=== PATIENT | female | born 1930 | race Caucasian/White ===

== ENCOUNTER 2021-04-05 14:43 | Emergency (ER) | payer OTHER ==
--- OUTSIDE RECORDS SUMMARY | 2021-04-05 14:44 | XMS REPORT | Continuity of Care Document ---
:1930 Author Organization [facility] t Address [address] [place] [address] [address] [place] [address] Care Team Providers Name Role Phone David GALLEGOS Attending Clinician Problems This patient has no known problems. Allergies, Adverse Reactions, Alerts This patient has no known allergies or adverse reactions. Medications This patient has no known medications. Procedures This patient has no known procedures. Encounters Start End Encounter Admission Attending Care Care Encounter Source Date/Time Date/Time Type Type Clinicians Facility Department ID 2021-01-26 2021-01-26 Refill [facility] [id number] 00:00:00 00:00:00 Juwan Guevara [id number] [place] [id number] [facility] [phone] [address] 2021-01-18 2021-01-18 Refill [facility] [id number] 00:00:00 00:00:00 Juwan Guevara [id number] [place] [id number] [facility] [phone] nal [address] [place] [address] 2021-01-02 2021-01-02 Office [facility] [id number] 14:03:05 15:40:11 Visit Juwan Guevara [id number] [place] [id number] [facility] [phone] [address] Results This patient has no known results.
[2021-04-05] MEDS ORDERED: ACETAMINOPHEN 325 MG TABLET ONE (15:19)
--- NOTE | 2021-04-05 15:44 | RAD REPORT ---
EXAM DESCRIPTION: CT - Head C Spine Mpr Wo Con - 04/05/2021 3:19 pm CLINICAL HISTORY: Head and neck injury status post fall. Head and neck pain COMPARISON: None. TECHNIQUE: Computed axial tomography of the head and cervical spine was obtained. Sagittal and coronal reconstruction was performed. All CT scans are performed using dose optimization technique as appropriate and may include automated exposure control or mA/KV adjustment according to patient size. FINDINGS: An intracranial bleed is not seen. The ventricles are normal in caliber. An extra-axial fl uid collection is not noted.Fluid within the visualized sinuses and mastoids is not seen A cervical fracture is not visualized. No dislocation is noted. Spondylosis involves the cervical spi ne. IMPRESSION: No acute intracranial abnormality is seen. A cervical fracture is not visualized. If the patient continues to have symptoms to suggest intracra nial /spinal cord pathology then MRI would be recommended
--- NOTE | 2021-04-05 15:47 | RAD REPORT ---
EXAM DESCRIPTION: CT - Facial Bones W/ Mpr - 04/05/2021 3:18 pm CLINICAL HISTORY: Facial injury status post fall with facial pain COMPARISON: None TECHNIQUE: Computed axial tomography of the face was obtained. Coronal and sagittal reconstruction w as performed. All CT scans are performed using dose optimization technique as appropriate and may include automated exposure control or mA/KV adjustment according to patient size. FINDINGS: A fracture is not seen. A TMJ dislocation is not noted. The globes are intact. Fluid within the sinuses is not seen. IMPRESSION: Negative for a facial fracture.
--- NOTE | 2021-04-05 16:01 | EDPHYS ---
Physician Documentation [facility] Name: Celina Nation Age: 89 yrs Sex: Female : 1930 Arrival Date: 04/05/2021 Time: 14:55 Bed 2 Private MD: NAHUM Physician Gilson Freed HPI: 04/05 15:00 This 89 yrs old Female presents to ER via EMS with complaints of Head Injury Without cp LOC-Adult. 15:00 The patient or guardian reports injury. cp 15:00 The complaints affect the forehead and nose. Context of injury: The problem was cp sustained at long term, resulted from trip and fall. Onset: The symptoms/episode began/occurred just prior to arrival. Associated signs and symptoms: Loss of consciousness: This patient did not experience any loss of consciousness. Historical: - Allergies: 15:13 TETRACYCLINES; sv - PMHx: 15:13 Thyroid cancer; Hypertension; Dementia; Anxiety; Hypothyroidism; insomnia; Depression; sv - PSHx: 15:13 Thyroidectomy; Knee surgery; sv - Immunization history:: Adult Immunizations up to date. - Social history:: Smoking status: Patient denies any tobacco usage or history of. ROS: 15:15 Constitutional: Negative for body aches, chills, fever, poor PO intake. cp 15:15 Eyes: Negative for injury, pain, redness, and discharge. cp 15:15 ENT: Negative for drainage from ear(s), ear pain, sore throat, difficulty swallowing, difficulty handling secretions. 15:15 Neck: Negative for pain with movement, pain at rest, stiffness. 15:15 Cardiovascular: Negative for chest pain, palpitations. 15:15 Respiratory: Negative for cough, shortness of breath, wheezing. 15:15 Abdomen/GI: Negative for abdominal pain, nausea, vomiting, and diarrhea. 15:15 Back: Negative for pain at rest, pain with movement. 15:15 MS/extremity: Negative for injury or acute deformity, decreased range of motion, paresthesias. 15:15 Neuro: Negative for altered mental status, dizziness, loss of consciousness, syncope, weakness. 15:15 All other systems are negative. Exam: 15:20 Constitutional: The patient appears in no acute distress, alert, awake, cp non-diaphoretic, well developed, well nourished. 15:20 Head/face: Noted is contusion, that is superficial, of the forehead and nose. cp 15:20 Eyes: Periorbital structures: appear normal, Pupils: equal, round, and reactive to light and accomodation, Extraocular movements: intact throughout, Conjunctiva: normal, no exudate, no injection, Sclera: no appreciated abnormality, Lids and lashes: appear normal, bilaterally. 15:20 ENT: External ear(s): are unremarkable, Ear canal(s): are normal, clear, TM's: dullness, bilaterally, Nose: External nose: contusion is noted, bridge of nose, Nasal septum: is midline, no septal hematoma appreciated, Mouth: Lips: upper lip, mild swelling, Posterior pharynx: Airway: no evidence of obstruction, patent, Dental exam: no acute changes, Voice: is normal. 15:20 Neck: C-spine: vertebral tenderness, is not appreciated, crepitus, is not appreciated, ROM/movement: is normal, is supple, without pain, no range of motions limitations. 15:20 Chest/axilla: Inspection: normal, Palpation: is normal, no crepitus, no tenderness. 15:20 Cardiovascular: Rate: normal. 15:20 Respiratory: the patient does not display signs of respiratory distress, Respirations: normal, no use of accessory muscles. 15:20 Abdomen/GI: Exam negative for discomfort, distension, guarding, Inspection: abdomen appears normal. 15:20 Back: pain, is absent, ROM is normal. 15:20 Musculoskeletal/extremity: Exam is negative for decreased range of motion, deformity, injury. 15:20 Neuro: Orientation: to person, place \T\ time. Mentation: is normal, Motor: moves all fours, strength is normal, Sensation: no obvious gross deficits. Vital Signs: 15:10 BP 141 / 80; Pulse 74; Resp 20; Temp 97.9(O); Pulse Ox 98% ; sv 15:44 BP 109 / 53; Pulse 67; Resp 18; Temp 98; Pulse Ox 100% ; sv Cassie Coma Score: 15:00 Eye Response: spontaneous(4). Verbal Response: oriented(5). Motor Response: obeys cp commands(6). Total: 15. 15:44 Eye Response: spontaneous(4). Verbal Response: oriented(5). Motor Response: obeys sv commands(6). Total: 15. Trauma Score (Adult): 14:55 Eye Response: spontaneous(1); Verbal Response: oriented(1); Motor Response: obeys sv commands(2); Systolic BP: > 89 mm Hg(4); Respiratory Rate: 10 to 29 per min(4); Bradley Score: 15; Trauma Score: 12 15:44 Eye Response: spontaneous(1); Verbal Response: oriented(1); Motor Response: obeys sv commands(2); Systolic BP: > 89 mm Hg(4); Respiratory Rate: 10 to 29 per min(4); Cassie Score: 15; Trauma Score: 12 MDM: 14:58 Patient medically screened. [facility] 16:00 Data reviewed: vital signs, nurses notes, radiologic studies, CT scan. 16:00 Differential diagnosis: Contusion of Hematoma on Intracranial bleed- Concussion cp cerebral contusion. Counseling: I had a detailed discussion with the patient and/or guardian regarding: the historical points, exam findings, and any diagnostic results supporting the discharge/admit diagnosis, radiology results, to return to the emergency department if symptoms worsen or persist or if there are any questions or concerns that arise at home. Response to treatment: the patient's symptoms have markedly improved after treatment, and as a result, I will discharge patient. 04/05 14:56 Order name: CT Facial Bones W/O Con; Complete Time: 15:57 04/05 15:57 Interpretation: Report reviewed. 04/05 14:56 Order name: CT Head C Spine; Complete Time: 15:46 04/05 15:46 Interpretation: Reviewed report. Administered Medications: 15:09 CANCELLED (pt took Tylenol #3 before coming): Tylenol 650 mg PO once sv Disposition: 16:20 Chart complete. 04/06 10:01 Co-signature as Attending Physician, Gilson Freed MD I agree with the assessment and [facility] plan of care. Disposition: 04/05/21 16:01 Discharged to Home. Impression: Fall on same level from slipping, tripping and stumbling, Contusion of lip and oral cavity. - Condition is Stable. - Discharge Instructions: Facial or Scalp Contusion. - Medication Reconciliation Form, Thank You Letter, Antibiotic Education, Prescription Opioid Use form. - Follow up: Emergency Department; When: As needed; Reason: Worsening of condition. - Problem is new. - Symptoms have improved. Signatures: Dispatcher [employer] Gema Ricardo RN RN sv Anderson, Corey, MD MD cha Page, Corey, PA PA cp Corrections: (The following items were deleted from the chart) 04/05 15:09 14:56 Tylenol 650 mg PO once ordered. cp sv 16:15 16:01 04/05/2021 16:01 Discharged to Home. Impression: Fall on same level from sv slipping, tripping and stumbling; Contusion of lip and oral cavity. Condition is Stable. Forms are Medication Reconciliation Form, Thank You Letter, Antibiotic Education, Prescription Opioid Use. Follow up: Emergency Department; When: As needed; Reason: Worsening of condition. Problem is new. Symptoms have improved. cp
--- NOTE | 2021-04-05 16:01 | ER ---
Nurse's Notes [facility] Name: Celina Nation Age: 89 yrs Sex: Female : 1930 Arrival Date: 04/05/2021 Time: 14:55 Bed 2 Private MD: Diagnosis: Fall on same level from slipping, tripping and stumbling;Contusion of lip and oral cavity Presentation: 04/05 14:55 Chief complaint: EMS states: s/p frontal fall today at [facility], hit the left forehead sv area, nose, and upper lip. Pt has small laceration inside the upper lip. Denies LOC or on blood thinners. Care prior to arrival: None. Mechanism of Injury: Fall from standing position. Trauma event details: Injury occurred in the [facility], Injury occurred: at home. Injury occurred: April 05, 2021. 14:55 Acuity: IVANNA 4 sv 14:55 Method Of Arrival: EMS: [facility] sv 15:10 Coronavirus screen: Client denies travel out of the [place] in the last 14 days. Ebola sv Screen: No symptoms or risks identified at this time. Initial Sepsis Screen: Does the patient meet any 2 criteria? No. Patient's initial sepsis screen is negative. Does the patient have a suspected source of infection? No. Patient's initial sepsis screen is negative. Risk Assessment: Do you want to hurt yourself or someone else? Patient reports no desire to harm self or others. Onset of symptoms was April 05, 2021. Trauma Activation: Not Applicable Physician: ED Physician; Name: ; Notified At: ; Arrived At: Physician: General Surgeon; Name: ; Notified At: ; Arrived At: Physician: Radiology; Name: ; Notified At: ; Arrived At: Physician: Respiratory; Name: ; Notified At: ; Arrived At: Physician: Lab; Name: ; Notified At: ; Arrived At: Historical: - Allergies: 15:13 TETRACYCLINES; sv - PMHx: 15:13 Thyroid cancer; Hypertension; Dementia; Anxiety; Hypothyroidism; insomnia; Depression; sv - PSHx: 15:13 Thyroidectomy; Knee surgery; sv - Immunization history:: Adult Immunizations up to date. - Social history:: Smoking status: Patient denies any tobacco usage or history of. Screenin:47 Abuse screen: Denies threats or abuse. Denies injuries from another. Nutritional sv screening: No deficits noted. Tuberculosis screening: No symptoms or risk factors identified. Fall Risk None identified. Primary Survey: 14:55 NO uncontrolled hemorrhage observed. A: The patient is alert. Airway: patent, No sv supplemental oxygen in use on arrival. Oral cavity: clear, Trachea midline. Breathing/Chest: Respiratory pattern: regular, Respiratory effort: spontaneous, unlabored, Chest inspection: symmetrical rise and fall of the chest. Circulation: Heart tones present. Pulses: palpable right radial artery and left radial artery. Skin color: pink, Skin temperature: warm, dry. Disability Alert. Exposure/Environment: All clothing and personal items were removed. Forensic evidence collection is not deemed to be indicated at this time. Items placed in patient belonging bag. There is no evidence of uncontrolled external bleeding. 15:44 Reassessment Airway Airway Patent Oxygen No O2 Oral cavity Clear Trachea Midline sv Breathing/Chest Respiratory pattern Regular Respiratory effort Spontaneous Unlabored Chest inspection Symmetrical Circulation Heart tones Present Pulses Palpable Color Dwight Temperature Warm Dry Disability Alert. Secondary Survey: 14:55 HEENT: Head Other dime sized hematoma noted above left eyebrow Nose: abrasion noted. sv Gastrointestinal: No deficits noted. : No signs and/or symptoms were reported regarding the genitourinary system. Musculoskeletal: No signs and/or symptoms reported regarding the musculoskeletal system. Injury Description: Laceration sustained to upper lip is 0.5 to 2.5 cm long. Assessment: 16:01 Reassessment: Patient appears in no apparent distress at this time. No changes from previously documented assessment. Patient and/or family updated on plan of care and expected duration. Pain level reassessed. Patient is alert, oriented x 3, equal unlabored respirations, skin warm/dry/pink. 16:10 Reassessment: EMS on the way here to take pt. sv 16:14 Reassessment: Report given to Everardo from EMS. sv Vital Signs: 15:10 BP 141 / 80; Pulse 74; Resp 20; Temp 97.9(O); Pulse Ox 98% ; sv 15:44 BP 109 / 53; Pulse 67; Resp 18; Temp 98; Pulse Ox 100% ; sv [place]field Coma Score: 15:00 Eye Response: spontaneous(4). Verbal Response: oriented(5). Motor Response: obeys cp commands(6). Total: 15. 15:44 Eye Response: spontaneous(4). Verbal Response: oriented(5). Motor Response: obeys sv commands(6). Total: 15. Trauma Score (Adult): 14:55 Eye Response: spontaneous(1); Verbal Response: oriented(1); Motor Response: obeys sv commands(2); Systolic BP: > 89 mm Hg(4); Respiratory Rate: 10 to 29 per min(4); Cassie Score: 15; Trauma Score: 12 15:44 Eye Response: spontaneous(1); Verbal Response: oriented(1); Motor Response: obeys sv commands(2); Systolic BP: > 89 mm Hg(4); Respiratory Rate: 10 to 29 per min(4); Cassie Score: 15; Trauma Score: 12 ED Course: 14:55 Patient arrived in ED. ss 14:55 Gema Villanueva RN is Primary Nurse. ss 14:55 Gilson Castillo PA is PHCP. cp 14:55 Gilson Freed MD is Attending Physician. cp 14:55 Patient maintains SpO2 saturation greater than 95% on room air. sv 14:55 Thermoregulation: warm blanket given to patient. sv 15:05 Patient has correct armband on for positive identification. Placed in gown. Bed in low sv position. Call light in reach. Side rails up X2. compensation associate on. Pulse ox on. NIBP on. Door closed. Head of bed elevated. 15:10 Triage completed. sv 15:14 Arm band placed on. sv 15:18 CT Facial Bones W/O Con In Process Unspecified. EDMS 15:19 CT Head C Spine In Process Unspecified. EDMS 16:02 No provider procedures requiring assistance completed. Patient did not have IV access sv during this emergency room visit. Administered Medications: 15:09 CANCELLED (pt took Tylenol #3 before coming): Tylenol 650 mg PO once sv Intake: 14:55 PO: 0ml; Total: 0ml. sv 15:44 PO: 0ml; Total: 0ml. sv Output: 14:55 Urine: 0ml; Total: 0ml. sv 15:44 Urine: 0ml; Total: 0ml. sv Outcome: 16:01 Discharge ordered by . cp 16:02 Discharged to alf. Report called to Arian CAREYcadd drafter form completed. sv 16:02 Condition: stable 16:02 Discharge instructions given to alf, Instructed on discharge instructions, follow up and referral plans. Demonstrated understanding of instructions, follow-up care. 16:15 Patient's length of stay was not longer than 2 hours. sv 16:15 Patient left the ED. sv Signatures: Dispatcher [employer] Gema Ricardo RN RN sv Anali Neves RN RN ss Gilson Castillo, JAIME SANDOVAL cp
[2021-04-05 16:22] VITALS: BP 109/53; TEMP 98; O2SAT 100
== END 2021-04-05 16:15 | disposition home or self-care (01) ==
LOC: ER 14:43
DX: S00.532A Contusion of oral cavity, initial encounter (principal); S00.33XA Contusion of nose, initial encounter; W01.0XXA Fall on same level from slipping, tripping and stumbling without subsequent striking against object, initial encounter; Y92.009 Unspecified place in unspecified non-institutional (private) residence as the place of occurrence of the external cause; I10 Essential (primary) hypertension; F03.90 Unspecified dementia, unspecified severity, without behavioral disturbance, psychotic disturbance, mood disturbance, and anxiety; Z88.1 Allergy status to other antibiotic agents
CPT/HCPCS: 70450; 70486; 72125; 76377; 99285